=== PATIENT | female | born 2000 | race Caucasian/White ===

== ENCOUNTER 2021-03-08 16:38 | Emergency (ER) | payer OTHER, MEDICAID ==
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
== END 2021-03-08 17:45 | disposition home or self-care (01) ==
LOC: FB.ED 16:38
DX: S23.3XXA Sprain of ligaments of thoracic spine, initial encounter (principal); Z88.5 Allergy status to narcotic agent; V49.40XA Driver injured in collision with unspecified motor vehicles in traffic accident, initial encounter
CPT/HCPCS: 99283